=== PATIENT | male | born 1995 | race Caucasian/White ===

== ENCOUNTER 2016-06-03 23:05 | Emergency (ER) | payer OTHER, SELFPAY ==
[~2016-06-03] VITALS: Ht 177.8 cm; Wt 84.8 kg
[2016-06-04] MEDS ORDERED: ACETAMINOPHEN/CODEINE #3 TABLET (BULK) PO ONE (01:30)
[2016-06-04] MEDS ORDERED: AMOXICILLIN 500 MG CAP PO ONE (01:30)
[2016-06-04] MEDS ORDERED: MOTR200T44 PO (01:33)
[2016-06-04] MEDS ORDERED: ACET30TAB PO (01:33)
[2016-06-04] MEDS ORDERED: AMOX500C PO (01:33)
[2016-06-04 01:34] VITALS: BP 146/78
== END 2016-06-04 01:44 | disposition home or self-care (01) ==
LOC: M ED 06-04 00:43
DX: K08.539 Fractured dental restorative material, unspecified (principal); Z88.1 Allergy status to other antibiotic agents

== ENCOUNTER → 2017-06-11 | Outpatient (CLI) | payer OTHER ==
[2017-06-11 14:09] LABS: BASO # 0.1 10^3/uL (0.0-0.2); BASO % 0.8 % (0.0-1.0); EOS # 0.2 10^3/uL (0.0-0.50); EOS % 3.1 % (0.0-3.0); HEMATOCRIT 46.1 % (42.0-52.0); HEMOGLOBIN 15.6 g/dl (14.0-18.0); IMMATURE GRANULOCYTE % 0.2 % (0-3.0); LYMPH # 2.3 10^3/uL (1.5-6.5); LYMPH % 36.9 % (24.0-44.0); MEAN CORPUSCULAR HGB CONC 33.8 g/dl (32.0-36.5); MEAN CORPUSCULAR VOLUME 79.8 fl (80.0-96.0); MONO # 0.6 10^3/uL (0.0-0.8); MONO % 9.7 % (0.0-5.0); NEUTROPHILS % 49.3 % (36.0-66.0); PLATELET COUNT, AUTOMATED 268 10^3/uL (150-450); RED BLOOD COUNT 5.78 10^6/uL (4.30-6.10); RED CELL DISTRIBUTION WIDTH 11.9 % (11.5-14.5); WHITE BLOOD COUNT 6.1 10^3/uL (4.0-10.0)
[2017-06-11 14:18] LABS: ALBUMIN 4.3 GM/DL (3.2-5.2); ALBUMIN/GLOBULIN RATIO 1.48 (1.00-1.93); ALKALINE PHOSPHATASE 75 U/L (45-117); ALT/SGPT 77 U/L (12-78); ANION GAP 5 MEQ/L (8-16); AST/SGOT 38 U/L (7-37); BILIRUBIN,TOTAL 0.8 MG/DL (0.2-1.0); BLOOD UREA NITROGEN 10 MG/DL (7-18); CARBON DIOXIDE LEVEL 30 MEQ/L (21-32); CHLORIDE LEVEL 106 MEQ/L (98-107); CREATININE FOR GFR 0.99 MG/DL (0.70-1.30); GLOMERULAR FILTRATION RATE > 60.0 (>60); GLUCOSE, FASTING 92 MG/DL (70-100); POTASSIUM SERUM 4.2 MEQ/L (3.5-5.1); SODIUM LEVEL 141 MEQ/L (136-145); TOTAL PROTEIN 7.2 GM/DL (6.4-8.2)
[2017-06-13 00:07] LABS: TISSUE TRANSGLUTAMINASE IgA <2 U/mL (0-3)
== END ==
LOC: M SMT 09:25
DX: R10.9 Unspecified abdominal pain (principal)
CPT/HCPCS: 80053

== ENCOUNTER → 2018-02-28 | Outpatient (CLI) | payer OTHER | LOC: M WUC 14:11 | DX: S16.1XXA Strain of muscle, fascia and tendon at neck level, initial encounter (principal); X58.XXXA Exposure to other specified factors, initial encounter; Y92.9 Unspecified place or not applicable | CPT/HCPCS: 72052 ==

== ENCOUNTER → 2018-07-30 | Outpatient (CLI) | payer OTHER ==
[~2018-07-30] MED LIST: ACET-716 PO; AMOX500C PO; MOTR200T44 PO
--- NOTE | 2018-07-31 01:23 | REP ---
Clinical: Left ankle pain . Technique: AP, lateral, bilateral oblique views. Findings: No acute fracture or dislocation. Skeletal structures and joint spaces are intact and normal. Ankle mortise appears stable. No subcutaneous emphysema or radiodense foreign body. Impression: Normal left ankle radiograph series. Electronically Signed by Calrk Dos Santos MD 07/31/2018 01:15 A
== END ==
LOC: M WUC 11:45
PROVIDERS: ATTEND Physician Assistant
DX: M25.572 Pain in left ankle and joints of left foot (principal)

== ENCOUNTER → 2018-10-20 | Outpatient (CLI) | payer OTHER ==
--- NOTE | 2018-10-21 05:20 | REP ---
Clinical: Neck strain/sprain . Technique: AP, lateral, flexion/extension, bilateral oblique, and open-mouth views. Findings: Alignment and lordosis is maintained. There is no evidence for acute fracture / compression injury or subluxation. No significant degenerative changes are appreciated. Oblique views demonstrate patent neural foramen. Open mouth view demonstrates normal C1-C2 articulation and odontoid process. Impression: Normal cervical spine series. Electronically Signed by Clark Dos Santos MD 10/21/2018 05:12 A
== END ==
LOC: M SMT 08:38
PROVIDERS: ATTEND Physician Assistant
DX: S16.1XXA Strain of muscle, fascia and tendon at neck level, initial encounter (principal); X58.XXXA Exposure to other specified factors, initial encounter; Y92.89 Other specified places as the place of occurrence of the external cause

== ENCOUNTER 2019-05-10 15:24 | Emergency (ER) | payer OTHER ==
[~2019-05-10] VITALS: Ht 177.8 cm; Wt 97.4 kg
[2019-05-10] MEDS ORDERED: HYDR-3363 (15:38)
[2019-05-10] MEDS ORDERED: [UNRECOGNIZED DRUG - OTHER] IM ONE (16:00)
[2019-05-10 16:18] LABS: BASO % 0.4 % (0.0-1.0); EOS # 0.2 10^3/uL (0.0-0.5); EOS % 3.4 % (0.0-3.0); HEMATOCRIT 46.5 % (42.0-52.0); HEMOGLOBIN 16.1 g/dl (13.5-17.5); LYMPH # 1.9 10^3/uL (1.5-5.0); LYMPH % 26.7 % (24.0-44.0); MEAN CORPUSCULAR HEMOGLOBIN 27.4 pg (27.0-33.0); MEAN CORPUSCULAR HGB CONC 34.6 g/dl (32.0-36.5); MEAN CORPUSCULAR VOLUME 79.2 fl (80.0-96.0); MONO # 0.7 10^3/uL (0.0-0.8); MONO % 9.1 % (0.0-5.0); NEUTROPHILS # 4.3 10^3/uL (1.5-8.5); NEUTROPHILS % 60.1 % (36.0-66.0); PLATELET COUNT, AUTOMATED 280 10^3/uL (150-450); RED BLOOD COUNT 5.87 10^6/uL (4.30-6.10); WHITE BLOOD COUNT 7.2 10^3/uL (4.0-10.0)
[2019-05-10 16:45] LABS: ALBUMIN 4.6 GM/DL (3.2-5.2); ALT/SGPT 127 U/L (12-78); BILIRUBIN,TOTAL 0.7 MG/DL (0.2-1.0); BLOOD UREA NITROGEN 13 MG/DL (7-18); CALCIUM LEVEL 9.1 MG/DL (8.5-10.1); CARBON DIOXIDE LEVEL 27 MEQ/L (21-32); CHLORIDE LEVEL 107 MEQ/L (98-107); CREATININE FOR GFR 1.04 MG/DL (0.70-1.30); GLOMERULAR FILTRATION RATE > 60.0 (>60); GLUCOSE, FASTING 92 MG/DL (70-100); POTASSIUM SERUM 4.2 MEQ/L (3.5-5.1); SODIUM LEVEL 139 MEQ/L (136-145); TOTAL PROTEIN 7.9 GM/DL (6.4-8.2)
[2019-05-10 17:05] VITALS: BP 136/91
[2019-05-11 09:24] LABS: HEPATITIS B SURFACE ANTIBODY NEGATIVE (POSITIVE)
[2019-05-11 09:35] LABS: HEPATITIS B SURFACE ANTIGEN NEGATIVE (NEGATIVE)
[2019-05-11 10:03] LABS: HEPATITIS C VIRUS ABY INDEX < 0.0 INDEX (<0.8)
[2019-05-11 10:04] LABS: HIV 1&2 SCREEN CENTAUR NEGATIVE (NEGATIVE)
== END 2019-05-10 17:12 | disposition home or self-care (01) ==
LOC: M ED 15:24
DX: Z77.21 Contact with and (suspected) exposure to potentially hazardous body fluids (principal); Z79.899 Other long term (current) drug therapy

== ENCOUNTER → 2019-05-29 | Outpatient (REF) | payer OTHER ==
[~2019-05-29] MED LIST changes: +HYDR-3363
== END ==
LOC: M LAB 21:29
PROVIDERS: ATTEND Physician Assistant Medical
DX: Z11.59 Encounter for screening for other viral diseases (principal); Z20.89 Contact with and (suspected) exposure to other communicable diseases
CPT/HCPCS: 87486; 87581; 87633; 87798; U0002

== ENCOUNTER 2020-01-20 14:13 | Emergency (ER) | payer OTHER ==
[~2020-01-20] VITALS: Ht 177.8 cm; Wt 96.2 kg
--- NOTE | 2020-01-20 16:13 | REP ---
INDICATION: tender swollen area left scrotum. COMPARISON: None. TECHNIQUE: Standard scrotal us sonographic techniques with color Doppler also performed bilaterally. FINDINGS: Bilateral testes appear homogeneous in echotexture and smooth contour. The right measures 5.1 x 2.3 x 3.1 cm and the left is 5.5 x 2.3 x 2.8 cm. Color flow appears normal and Doppler tracings show resistive index 0.46 on the right, 0.58 on the left. No hyperemia evident within either testis or adjacent. There is no evidence of torsion. There is no varicocele or hydrocele. The right epididymal head is the CC diameter of 8.6 mm, the left 7 mm. In the right epididymal head is a cystic area 2.2 x 2 x 1 mm. IMPRESSION: Symmetric homogeneous testes without hydrocele, varicocele, hyperemia or mass in either hemiscrotum. Normal blood flow to both testes no torsion. Incidental note made of a 2 mm epididymal head cyst on the right. No significant or acute finding by ultrasound. <Electronically signed by Tai Mesa > 01/20/20 [id number]
[2020-01-20 16:42] VITALS: BP 128/85
== END 2020-01-20 16:47 | disposition home or self-care (01) ==
LOC: M ED 14:13
DX: L73.9 Follicular disorder, unspecified (principal); K21.9 Gastro-esophageal reflux disease without esophagitis; S30.813A Abrasion of scrotum and testes, initial encounter; X58.XXXA Exposure to other specified factors, initial encounter; Y92.9 Unspecified place or not applicable; Y93.9 Activity, unspecified; Y99.9 Unspecified external cause status

== ENCOUNTER → 2021-01-25 | Outpatient (REF) | payer OTHER | LOC: M LAB REF 12:16 | PROVIDERS: ATTEND Physician Assistant | DX: R43.8 Other disturbances of smell and taste (principal) ==

== ENCOUNTER → 2021-03-22 | Outpatient (REF) | payer OTHER | LOC: M LAB REF 17:49 | PROVIDERS: ATTEND Physician Assistant | DX: J20.9 Acute bronchitis, unspecified (principal) ==

== ENCOUNTER → 2024-09-28 | Outpatient (REF) | payer OTHER ==
[2024-09-28 19:02] LABS: IRON (FE) 99.0 UG/DL (65-175)
[2024-09-28 19:03] LABS: PERCENT SATURATION 28.9 % (19.7-50.0)
== END ==
LOC: M LAB REF 17:17
PROVIDERS: ATTEND Internal Medicine
DX: R04.0 Epistaxis (principal)

== ENCOUNTER 2025-01-04 16:05 | Emergency (ER) | payer OTHER ==
[~2025-01-04] VITALS: Ht 177.8 cm; Wt 102.6 kg
[2025-01-04] MEDS: ONDANSETRON 4MG/2ML VIAL IV ONE (20:41)
[2025-01-04] MEDS: MORPHINE 4 MG/ML 1 ML VIAL IV PRN (20:42)
[2025-01-04] MEDS: NS (Normal Saline) 0.9% 1,000 ML IV SCH (20:46)
[2025-01-04] MEDS ORDERED: OLME20TA50 (20:51)
[2025-01-04] MEDS: KETAMINE HCL 200 MG/20 ML VIAL IV ONE (21:28)
[2025-01-04 21:50] VITALS: BP 171/98; TEMP 98.7; O2SAT 96
[2025-01-04 21:53] VITALS: O2SAT 98
== END 2025-01-04 21:53 | disposition home or self-care (01) ==
LOC: M ED 16:05
DX: S43.015A Anterior dislocation of left humerus, initial encounter (principal); X58.XXXA Exposure to other specified factors, initial encounter; Y92.9 Unspecified place or not applicable; Y93.9 Activity, unspecified; Y99.0 Civilian activity done for income or pay; I10 Essential (primary) hypertension; Z88.2 Allergy status to sulfonamides
CPT/HCPCS: 23655; 73020; 73030; 93041; 94760; 96361; 96366; 96374; 96375; 99285; J2405; J3010